=== PATIENT | male | born 1985 | race Caucasian/White ===

== ENCOUNTER 2017-04-30 15:07 | Emergency (ER) | payer SELFPAY ==
[~2017-04-30] VITALS: Ht 167.6 cm; Wt 65.0 kg
[2017-04-30 15:15] VITALS: BP 140/89; PULSE 71; RESP 15; TEMP 98.5; O2SAT 98
--- NOTE | 2017-04-30 16:35 | PD ---
HPI Chief Complaint: Psychiatric Symptoms Time Seen by Provider: 16:33 Travel History International Travel<30 days: No Contact w/Intl Traveler<30days: No Traveled to known affect area: No History of Present Illness HPI 32-year-old male presents to the emergency department or [facility] act for suicidal ideations. Patient states that he was at his mother's house and became over emotional over a breakup with his girlfriend of 4 years. Patient then placed a bottle ibuprofen into his mouth and spit them all out. Mother was concerned so she called for the police department for concern of patient's well-being. The police asked him if he would like to "speak with the doctor" and he agreed. Patient said that they then put him in handcuffs and sent to the hospital. Currently patient denies suicidal or homicidal ideations. Patient denies hallucinations. Patient denies chronic medication use or chronic medical conditions. Denies illicit or otherwise drug use. Denies fever, chills, chest pain, short of breath, urinary problems. PFSH Social History Tobacco Use: No Allergies-Medications (Allergen,Severity, Reaction): Coded Allergies: No Known Allergies (Unverified , 04/30/17) Review of Systems Except as stated in HPI: all other systems reviewed are Neg Physical Exam Narrative GENERAL: Well-nourished, well-developed patient. SKIN: Focused skin assessment warm/dry. HEAD: Normocephalic. EYES: No scleral icterus. No injection or drainage. NECK: Supple, trachea midline. No JVD or lymphadenopathy. CARDIOVASCULAR: Regular rate and rhythm without murmurs, gallops, or rubs. RESPIRATORY: Breath sounds equal bilaterally. No accessory muscle use. GASTROINTESTINAL: Abdomen soft, non-tender, nondistended. MUSCULOSKELETAL: No cyanosis, or edema. BACK: Nontender without obvious deformity. No CVA tenderness. Data Data Last Documented VS Vital Signs Date Time Temp Pulse Resp B/P (MAP) Pulse Ox O2 Delivery O2 Flow Rate FiO2 04/30/17 15:15 98.5 71 15 140/89 (106) 98 Orders Orders Diet Regular Basic (04/30/17 Dinner) Complete Blood Count With Diff (04/30/17 16:35) Comprehensive Metabolic Panel (04/30/17 16:35) Psych Screen (04/30/17 16:35) Drug Screen, Random Urine (04/30/17 16:35) Urinalysis - C+S If Indicated (04/30/17 16:35) Labs Laboratory Tests Test 04/30/17 16:40 04/30/17 17:15 White Blood Count 10.1 TH/MM3 Red Blood Count 4.88 MIL/MM3 Hemoglobin 14.7 GM/DL Hematocrit 42.1 % Mean Corpuscular Volume 86.3 FL Mean Corpuscular Hemoglobin 30.1 PG Mean Corpuscular Hemoglobin Concent 34.9 % Red Cell Distribution Width 12.6 % Platelet Count 249 TH/MM3 Mean Platelet Volume 8.9 FL Neutrophils (%) (Auto) 78.1 % Lymphocytes (%) (Auto) 16.4 % Monocytes (%) (Auto) 5.2 % Eosinophils (%) (Auto) 0.2 % Basophils (%) (Auto) 0.1 % Neutrophils # (Auto) 7.9 TH/MM3 Lymphocytes # (Auto) 1.7 TH/MM3 Monocytes # (Auto) 0.5 TH/MM3 Eosinophils # (Auto) 0.0 TH/MM3 Basophils # (Auto) 0.0 TH/MM3 CBC Comment DIFF FINAL Differential Comment Blood Urea Nitrogen 15 MG/DL Creatinine 1.06 MG/DL Random Glucose 96 MG/DL Total Protein 8.2 GM/DL Albumin 4.8 GM/DL Calcium Level 9.7 MG/DL Alkaline Phosphatase 76 U/L Aspartate Amino Transf (AST/SGOT) 15 U/L Alanine Aminotransferase (ALT/SGPT) 16 U/L Total Bilirubin 0.7 MG/DL Sodium Level 138 MEQ/L Potassium Level 4.3 MEQ/L Chloride Level 103 MEQ/L Carbon Dioxide Level 31.6 MEQ/L Anion Gap 3 MEQ/L Estimat Glomerular Filtration Rate 81 ML/MIN Urine Color YELLOW Urine Turbidity CLEAR Urine pH 6.5 Urine Specific [place] 1.019 Urine Protein NEG mg/dL Urine Glucose (UA) NEG mg/dL Urine Ketones NEG mg/dL Urine Occult Blood NEG Urine Nitrite NEG Urine Bilirubin NEG Urine Urobilinogen LESS THAN 2.0 MG/DL Urine Leukocyte Esterase NEG Urine WBC LESS THAN 1 /hpf Urine Mucus FEW /lpf Microscopic Urinalysis Comment CULT NOT INDICATED Urine Opiates Screen NEG Urine Barbiturates Screen NEG Urine Amphetamines Screen NEG Urine Benzodiazepines Screen NEG Urine Cocaine Screen POS Urine Cannabinoids Screen POS MDM Medical Decision Making Medical Screen Exam Complete: Yes Emergency Medical Condition: Yes Differential Diagnosis Suicidal ideations, PTSD, anxiety, depression Narrative Course 32-year-old male presents to the emergency department or [facility] act for suicidal ideations. Patient states that he was at his mother's house and became over emotional over a breakup with his girlfriend 4 years. Patient then the bottle ibuprofen into his mouth and spit them all out. Mother was concerned so she called for the police department to come out. The police asked him if he would like to "speak with the doctor" and he agreed. Patient said that they then put him in handcuffs and sent to the hospital. Currently patient denies suicidal or homicidal ideations. Patient has hallucinations. Patient denies chronic medication use or chronic medical conditions. Denies illicit or otherwise drug use. Denies fever, chills, chest pain, short of breath, urinary problems. Vital signs stable Physical exam unremarkable. Labs were reviewed. Patient will be medically cleared to see psych. Condition: Stable Angelica Cleaning Apr 30, 2017 16:35
[2017-04-30 17:41] LABS: AUTOMATED NEUTROPHIL # 7.9 TH/MM3 (1.8-7.7); BASOPHIL % 0.1 % (0.0-2.0); EOSINOPHIL % 0.2 % (0.0-4.0); HEMATOCRIT 42.1 % (39.0-51.0); HEMOGLOBIN 14.7 GM/DL (13.0-17.0); LYMPH % 16.4 % (9.0-44.0); LYMPHOCYTE # 1.7 TH/MM3 (1.0-4.8); MEAN CELL VOLUME 86.3 FL (80.0-100.0); MEAN CORPUSCULAR HEMOGLOBIN 30.1 PG (27.0-34.0); MEAN CORPUSCULAR HGB CONC 34.9 % (32.0-36.0); MEAN PLATELET VOLUME 8.9 FL (7.0-11.0); MONO % 5.2 % (0.0-8.0); MONOCYTE # 0.5 TH/MM3 (0-0.9); NEUT % 78.1 % (16.0-70.0); PLATELET COUNT 249 TH/MM3 (150-450); RED BLOOD COUNT 4.88 MIL/MM3 (4.50-5.90); RED CELL DISTRIBUTION WIDTH 12.6 % (11.6-17.2); WHITE BLOOD COUNT 10.1 TH/MM3 (4.0-11.0)
[2017-04-30 18:13] LABS: BILIRUBIN, URINE NEG (NEG); BLOOD, URINE NEG (NEG); GLUCOSE,URINE NEG (NEG); KETONE, URINE NEG (NEG); MUCUS URINE FEW /lpf (OCC); NITRITE,URINE NEG (NEG); PH, URINE 6.5 (5.0-8.5); URINE COLOR YELLOW (YELLW/STRAW); URINE LEUKOCYTE ESTERASE NEG (NEG)
[2017-04-30 18:15] LABS: ALBUMIN 4.8 GM/DL (3.4-5.0); AST (GOT) 15 U/L (15-37); BICARBONATE 31.6 MEQ/L (21.0-32.0); BLOOD UREA NITROGEN 15 MG/DL (7-18); CALCIUM 9.7 MG/DL (8.5-10.1); CHLORIDE 103 MEQ/L (98-107); CREATININE 1.06 MG/DL (0.60-1.30); GLOMERULAR FILTRATION RATE 81 ML/MIN (>89); GLUCOSE,RANDOM 96 MG/DL (74-106); SODIUM (NA) 138 MEQ/L (136-145)
[2017-04-30 18:19] LABS: ALKALINE PHOSPHATASE 76 U/L (45-117); ALT (GPT) 16 U/L (12-78); TOTAL BILIRUBIN ADULT 0.7 MG/DL (0.2-1.0); TOTAL PROTEIN 8.2 GM/DL (6.4-8.2)
[2017-04-30 21:48] VITALS: BP 143/82; PULSE 66; RESP 16; TEMP 100; O2SAT 99
[2017-05-01 06:56] VITALS: BP 119/73; PULSE 62; RESP 16; TEMP 98.2; O2SAT 100
--- NOTE | 2017-05-01 09:39 | PD ---
Physical Exam Date Seen by Provider: May 01, 2017 Time Seen by Provider: 09:37 Data Data Last Documented VS Vital Signs Date Time Temp Pulse Resp B/P (MAP) Pulse Ox O2 Delivery O2 Flow Rate FiO2 05/01/17 06:56 98.2 62 16 119/73 (88) 100 Room Air Orders Orders Diet Regular Basic (04/30/17 Dinner) Complete Blood Count With Diff (04/30/17 16:35) Comprehensive Metabolic Panel (04/30/17 16:35) Psych Screen (04/30/17 16:35) Drug Screen, Random Urine (04/30/17 16:35) Urinalysis - C+S If Indicated (04/30/17 16:35) Hydroxyzine Pamoate (Vistaril) (04/30/17 21:45) Diet Regular Basic (05/01/17 Breakfast) Ed Discharge Order (05/01/17 09:40) Labs Laboratory Tests Test 04/30/17 16:40 04/30/17 17:15 White Blood Count 10.1 TH/MM3 Red Blood Count 4.88 MIL/MM3 Hemoglobin 14.7 GM/DL Hematocrit 42.1 % Mean Corpuscular Volume 86.3 FL Mean Corpuscular Hemoglobin 30.1 PG Mean Corpuscular Hemoglobin Concent 34.9 % Red Cell Distribution Width 12.6 % Platelet Count 249 TH/MM3 Mean Platelet Volume 8.9 FL Neutrophils (%) (Auto) 78.1 % Lymphocytes (%) (Auto) 16.4 % Monocytes (%) (Auto) 5.2 % Eosinophils (%) (Auto) 0.2 % Basophils (%) (Auto) 0.1 % Neutrophils # (Auto) 7.9 TH/MM3 Lymphocytes # (Auto) 1.7 TH/MM3 Monocytes # (Auto) 0.5 TH/MM3 Eosinophils # (Auto) 0.0 TH/MM3 Basophils # (Auto) 0.0 TH/MM3 CBC Comment DIFF FINAL Differential Comment Blood Urea Nitrogen 15 MG/DL Creatinine 1.06 MG/DL Random Glucose 96 MG/DL Total Protein 8.2 GM/DL Albumin 4.8 GM/DL Calcium Level 9.7 MG/DL Alkaline Phosphatase 76 U/L Aspartate Amino Transf (AST/SGOT) 15 U/L Alanine Aminotransferase (ALT/SGPT) 16 U/L Total Bilirubin 0.7 MG/DL Sodium Level 138 MEQ/L Potassium Level 4.3 MEQ/L Chloride Level 103 MEQ/L Carbon Dioxide Level 31.6 MEQ/L Anion Gap 3 MEQ/L Estimat Glomerular Filtration Rate 81 ML/MIN Urine Color YELLOW Urine Turbidity CLEAR Urine pH 6.5 Urine Specific [place] 1.019 Urine Protein NEG mg/dL Urine Glucose (UA) NEG mg/dL Urine Ketones NEG mg/dL Urine Occult Blood NEG Urine Nitrite NEG Urine Bilirubin NEG Urine Urobilinogen LESS THAN 2.0 MG/DL Urine Leukocyte Esterase NEG Urine WBC LESS THAN 1 /hpf Urine Mucus FEW /lpf Microscopic Urinalysis Comment CULT NOT INDICATED Urine Opiates Screen NEG Urine Barbiturates Screen NEG Urine Amphetamines Screen NEG Urine Benzodiazepines Screen NEG Urine Cocaine Screen POS Urine Cannabinoids Screen POS MDM Supervised Visit with TEJA: No Narrative Course 32 YO M who presented to the ED for psychiatric evaluation. He was initially evaluated by Dr. Huggins and medically cleared. He was then seen by by Dr. Ayala, psychiatry, and deemed safe for discharge. Patient is stable and discharged home. Diagnosis Primary Impression: Adjustment disorder with depressed mood Additional Instruction: Follow up as discussed with Dr. Ayala. Return to the ED for any urgent or emergent medical condition. Disposition: DISCHARGE HOME Condition: Stable Gloria Jackson May 01, 2017 09:39
--- NOTE | 2017-05-01 13:32 | PD.PSY.CON ---
Provisional Diagnosis Admission Date [place]. Adjustment disorder with depressed mood, cannabis and cocaine use disorder [place]. Deferred [place]. No medical history History of Present Illness Service Psychiatry Consult Requested By ER Reason for Consult Suicidal attempt Primary Care Physician No Primary Care Physician HPI The patient is a 32-year-old man, domicile with his girlfriend, employed, without any previous psychiatric history, no previous psychotic hospitalizations, no previous suicidal attempts, cannabis and cocaine use disorder, no significant medical history, who presents to the emergency department or [facility] act for suicidal ideations. Patient states that he was at his mother's house and became over emotional over a breakup with his girlfriend of 4 years. Patient then placed a bottle ibuprofen into his mouth and spit them all out. Mother was concerned so she called for the police department for concern of patient's well-being. The police asked him if he would like to "speak with the doctor" and he agreed. Patient said that they then put him in handcuffs and sent to the hospital. On psychiatric evaluation today the patient is calm, cooperative, he explains that yesterday he was Overwhelmed and frustrated after breaking up with his girlfriend for 4 years. He says that he was suspecting, after breaking up with her, that she will call him to fix things. He was expressing his frustration to his mother, also he was trying to get some attention of his mother and girlfriend, but he was not trying to commit suicide. Patient denies depression, he denies anxiety, he denies psychosis, he denies SI, HI, he denies visual and auditory hallucinations at this moment. He reports occasional use of cocaine and marijuana. Review of Systems Constitutional: DENIES: Diaphoretic episodes, Fatigue, Fever, Weight gain, Weight loss, Chills, Dizziness, Change in appetite, Night Sweats Endocrine: DENIES: Heat/cold intolerance, Polydipsia, Polyuria, Polyphagia Eyes: DENIES: Blurred vision, Diplopia, Eye inflammation, Eye pain, Vision loss , Photosensitivity, Double Vision Ears, nose, mouth, throat: DENIES: Tinnitus, Hearing loss, Vertigo, Nasal discharge, Oral lesions, Throat pain, Hoarseness, Ear Pain, Running Nose, Epistaxis, Sinus Pain, Toothache, Odynophagia Respiratory: DENIES: Apneas, Cough, Snoring, Wheezing, Hemoptysis, Sputum production, Shortness of breath Cardiovascular: DENIES: Chest pain, Palpitations, Syncope, Dyspnea on Exertion , PND, Lower Extremity Edema, Orthopnea, Claudication Gastrointestinal: DENIES: Abdominal pain, Black stools, Bloody stools, Constipation, Diarrhea, Nausea, Vomiting, Difficulty Swallowing, Anorexia Genitourinary: DENIES: Sexual dysfunction, Urinary frequency, Urinary incontinence, Urgency, Hematuria, Dysuria, Nocturia, Penile Discharge, Testicular Pain, Testicular Swelling Musculoskeletal: DENIES: Joint pain, Muscle aches, Stiffness, Joint Swelling, Back pain, Neck pain Integumentary: DENIES: Abnormal pigmentation, Nail changes, Pruritus, Rash Hematologic/lymphatic: DENIES: Bruising, Lymphadenopathy Immunologic/allergic: DENIES: Eczema, Urticaria Neurologic: DENIES: Abnormal gait, Headache, Localized weakness, Paresthesias, Seizures, Speech Problems, Tremor, Poor Balance Psychiatric: DENIES: Anxiety, Confusion, Mood changes, Depression, Hallucinations, Agitation, Suicidal Ideation, Homicidal Ideation, Delusions Past Family Social History Coded Allergies: No Known Allergies (Unverified , 04/30/17) Physical Exam Vital Signs Vital Signs Date Time Temp Pulse Resp B/P (MAP) Pulse Ox O2 Delivery O2 Flow Rate FiO2 05/01/17 11:24 05/01/17 06:56 98.2 62 16 100 Room Air I/O 05/01/17 05/01/17 05/02/17 08:00 16:00 00:00 Intake Total 591 ml Balance 591 ml Lab Results Test 04/30/17 16:40 04/30/17 17:15 White Blood Count 10.1 TH/MM3 Red Blood Count 4.88 MIL/MM3 Hemoglobin 14.7 GM/DL Hematocrit 42.1 % Mean Corpuscular Volume 86.3 FL Mean Corpuscular Hemoglobin 30.1 PG Mean Corpuscular Hemoglobin Concent 34.9 % Red Cell Distribution Width 12.6 % Platelet Count 249 TH/MM3 Mean Platelet Volume 8.9 FL Neutrophils (%) (Auto) 78.1 % Lymphocytes (%) (Auto) 16.4 % Monocytes (%) (Auto) 5.2 % Eosinophils (%) (Auto) 0.2 % Basophils (%) (Auto) 0.1 % Neutrophils # (Auto) 7.9 TH/MM3 Lymphocytes # (Auto) 1.7 TH/MM3 Monocytes # (Auto) 0.5 TH/MM3 Eosinophils # (Auto) 0.0 TH/MM3 Basophils # (Auto) 0.0 TH/MM3 CBC Comment DIFF FINAL Differential Comment Blood Urea Nitrogen 15 MG/DL Creatinine 1.06 MG/DL Random Glucose 96 MG/DL Total Protein 8.2 GM/DL Albumin 4.8 GM/DL Calcium Level 9.7 MG/DL Alkaline Phosphatase 76 U/L Aspartate Amino Transf (AST/SGOT) 15 U/L Alanine Aminotransferase (ALT/SGPT) 16 U/L Total Bilirubin 0.7 MG/DL Sodium Level 138 MEQ/L Potassium Level 4.3 MEQ/L Chloride Level 103 MEQ/L Carbon Dioxide Level 31.6 MEQ/L Anion Gap 3 MEQ/L Estimat Glomerular Filtration Rate 81 ML/MIN Urine Color YELLOW Urine Turbidity CLEAR Urine pH 6.5 Urine Specific [place] 1.019 Urine Protein NEG mg/dL Urine Glucose (UA) NEG mg/dL Urine Ketones NEG mg/dL Urine Occult Blood NEG Urine Nitrite NEG Urine Bilirubin NEG Urine Urobilinogen LESS THAN 2.0 MG/DL Urine Leukocyte Esterase NEG Urine WBC LESS THAN 1 /hpf Urine Mucus FEW /lpf Microscopic Urinalysis Comment CULT NOT INDICATED Urine Opiates Screen NEG Urine Barbiturates Screen NEG Urine Amphetamines Screen NEG Urine Benzodiazepines Screen NEG Urine Cocaine Screen POS Urine Cannabinoids Screen POS Mental Status Examination Appearance: Appropriate Consciousness: Alert Orientation: x4 Motor Activity: Normal gait Speech: Unremarkable Language: Adequate Fund of Knowledge: Adequate Attention and Concentration: Adequate Memory: Unremarkable Mood: Appropriate Affect: Appropriate Thought Process & Associations: Intact Thought Content: Appropriate Hallucination Type: None Delusion Type: None Suicidal Ideation: No Suicidal Plan: No Suicidal Intention: No Homicidal Ideation: No Homicidal Plan: No Homicidal Intention: No Insight: Adequate Judgment: Adequate Assessment & Plan Problem List: (1) Adjustment disorder with depressed mood ICD Codes: F43.21 - Adjustment disorder with depressed mood Assessment & Plan: At the moment of this evaluation the patient does not present any neuropsychiatric symptoms that requires immediate psychiatric intervention. Patient denies depression, denies anxiety, denies haroon, denies psychosis. He denies visual and auditory hallucinations. He denies suicidal and homicidal ideation. Recent suicidal gesture was most probably related with manipulative and attention seeking behavior most probably exacerbated by cannabis and cocaine intoxication. Brief supportive psychotherapy provided. Psychoeducation provided. He does not meet criteria for involuntary psychiatric admission at this moment. Assessment & Plan Estimated LOS: days Miguel A Abel MD May 01, 2017 13:32
== END 2017-05-01 11:26 | disposition home or self-care (01) ==
LOC: NEPJ 15:07
DX: F43.21 Adjustment disorder with depressed mood (principal)
CPT/HCPCS: 80053; 80307; 81001; 85025; 99284